=== PATIENT | male | born 1975 | race Caucasian/White ===

== ENCOUNTER 2022-12-28 04:09 | Emergency (ER) | payer MEDICARE, MEDICAID ==
[~2022-12-28] VITALS: Ht 177.8 cm; Wt 79.0 kg
[2022-12-28 04:12] VITALS: BP 111/69; PULSE 70; RESP 12; TEMP 99.1; O2SAT 99
[2022-12-28 07:00] LABS: BASOPHILS % 0.9 % (0.0-2.0); EOSINOPHILS % 8.7 % (0.0-5.0); HEMATOCRIT. 38.6 % (42.0-52.0); HEMOGLOBIN. 13.2 g/dL (14.0-18.0); LYMPHOCYTES % 27.3 % (20.0-50.0); MEAN CORPUSCULAR HEMOGLOBIN 31.8 pg (28.0-32.0); MEAN CORPUSCULAR HGB CONC 34.1 g/dL (31.0-37.0); MEAN CORPUSCULAR VOLUME 93.2 fL (80.0-94.0); MEAN PLATELET VOLUME 8.2 fl (7.4-10.4); MONOCYTES % 14.9 % (2.0-8.0); NEUTROPHILS % 48.2 % (40.0-76.0); PLATELET 220 x1000/uL (130-400); RED BLOOD CELL COUNT 4.14 mill/uL (4.7-6.1); RED CELL DISTRIBUTION WIDTH 13.8 % (11.6-14.6); WHITE BLOOD COUNT 6.2 x1000/uL (4.5-11.0)
[2022-12-28 07:15] LABS: INDEX HEMOLYSI 1 (1-3); INDEX ICTERIC 1 (1-4); INDEX LIPEMIC 1 (1-3)
[2022-12-28 08:30] LABS: ALANINE AMINOTRANSFERASE 23 IU/L (13-61); ALBUMIN 3.7 g/dL (3.4-5.0); ASPARTATE AMINOTRANSFERASE 18 IU/L (15-37); CALCIUM 8.4 mg/dL (8.5-10.1); CHLORIDE 110 mEq/L (98-107); CREATININE 0.8 mg/dL (0.6-1.3); GLUCOSE 88 mg/dL (70-105); POTASSIUM 4.5 mEq/L (3.5-5.1); PROTEIN TOTAL 6.8 g/dL (6.0-8.3); SODIUM 141 mEq/L (136-145); UREA NITROGEN BLOOD 30 mg/dL (7-21)
[2022-12-28 11:55] LABS: CARBON DIOXIDE 23 mEq/L (21-32)
== END 2022-12-28 07:56 | disposition left against medical advice (07) ==
LOC: ER 04:09
DX: R11.10 Vomiting, unspecified (principal)
CPT/HCPCS: 36415; 80053; 85025; 99283

== ENCOUNTER 2022-12-28 19:02 | Emergency (ER) | payer MEDICARE, MEDICAID ==
[~2022-12-28] VITALS: Ht 182.9 cm; Wt 77.0 kg
[2022-12-28 19:04] VITALS: BP 119/71; PULSE 78; RESP 16; TEMP 97; O2SAT 98
[2022-12-28 19:42] LABS: BASOPHILS % 0.7 % (0.0-2.0); EOSINOPHILS % 9.1 % (0.0-5.0); HEMATOCRIT. 40.4 % (42.0-52.0); HEMOGLOBIN. 13.6 g/dL (14.0-18.0); LYMPHOCYTES % 26.4 % (20.0-50.0); MEAN CORPUSCULAR HEMOGLOBIN 31.7 pg (28.0-32.0); MEAN CORPUSCULAR HGB CONC 33.8 g/dL (31.0-37.0); MEAN CORPUSCULAR VOLUME 93.8 fL (80.0-94.0); MEAN PLATELET VOLUME 8.5 fl (7.4-10.4); MONOCYTES % 10.1 % (2.0-8.0); NEUTROPHILS % 53.7 % (40.0-76.0); PLATELET 227 x1000/uL (130-400); RED CELL DISTRIBUTION WIDTH 13.8 % (11.6-14.6); WHITE BLOOD COUNT 7.6 x1000/uL (4.5-11.0)
[2022-12-28 19:50] LABS: CHLORIDE 110 mEq/L (98-107); INDEX HEMOLYSI 2 (1-3); INDEX ICTERIC 1 (1-4); INDEX LIPEMIC 2 (1-3); POTASSIUM 3.6 mEq/L (3.5-5.1); SODIUM 142 mEq/L (136-145)
[2022-12-28 19:58] LABS: ALANINE AMINOTRANSFERASE 25 IU/L (13-61); ALBUMIN 3.8 g/dL (3.4-5.0); ASPARTATE AMINOTRANSFERASE 20 IU/L (15-37); BILIRUBIN TOTAL 0.3 mg/dL (0.1-1.0); CALCIUM 8.4 mg/dL (8.5-10.1); CARBON DIOXIDE 26 mEq/L (21-32); CREATININE 0.8 mg/dL (0.6-1.3); GLUCOSE 134 mg/dL (70-105); PROTEIN TOTAL 6.8 g/dL (6.0-8.3); UREA NITROGEN BLOOD 23 mg/dL (7-21)
[2022-12-28] MEDS ORDERED: KETOROLAC 30MG/ML VIAL IM ONE (21:45)
== END 2022-12-29 00:07 | disposition left against medical advice (07) ==
LOC: ER 19:02
DX: R10.32 Left lower quadrant pain (principal); R74.8 Abnormal levels of other serum enzymes; F31.9 Bipolar disorder, unspecified
CPT/HCPCS: 36415; 80053; 85025; 93005; 99284

== ENCOUNTER 2023-11-13 22:00 | Emergency (ER) | payer MEDICARE, MEDICAID ==
[~2023-11-13] VITALS: Ht 175.3 cm; Wt 80.0 kg
[2023-11-13 22:07] VITALS: TEMP 97.7; O2SAT 98
[2023-11-13] MEDS: ACETAMINOPHEN 325MG TABLET PO ONE (22:15)
[2023-11-14] MEDS ORDERED: LIDO700A15 TP (00:42)
[2023-11-14] MEDS ORDERED: NAPR-1176 MT (00:42)
[2023-11-14] MEDS: ACETAMINOPHEN 325MG TABLET PO NR (01:22)
[2023-11-14 06:30] VITALS: BP 113/76; PULSE 54; RESP 18; O2SAT 99
== END 2023-11-14 02:00 | disposition home or self-care (01) ==
LOC: ER 22:00
DX: M25.561 Pain in right knee (principal); R51.9 Headache, unspecified; F31.9 Bipolar disorder, unspecified; W10.9XXA Fall (on) (from) unspecified stairs and steps, initial encounter; Y93.89 Activity, other specified; Y92.89 Other specified places as the place of occurrence of the external cause; Y99.8 Other external cause status
CPT/HCPCS: 73562; 99284

== ENCOUNTER 2024-11-08 01:37 | Emergency (ER) | payer MEDICARE, MEDICAID ==
[~2024-11-08] VITALS: Ht 170.2 cm; Wt 75.0 kg
[~2024-11-08 01:37] MED LIST: LIDO-53 TP; NAPR-1176 MT
[2024-11-08 01:38] VITALS: O2SAT 99
[2024-11-08] MEDS ORDERED: IBUP-1455 MT (01:43)
[2024-11-08] MEDS: IBUPROFEN 600MG TABLET PO ONE (01:53)
[2024-11-08 01:55] VITALS: BP 118/81; PULSE 93; RESP 15; TEMP 36.8; O2SAT 98
== END 2024-11-08 01:58 | disposition home or self-care (01) ==
LOC: ER 01:37
DX: M79.671 Pain in right foot (principal); F31.9 Bipolar disorder, unspecified; Z79.1 Long term (current) use of non-steroidal anti-inflammatories (NSAID)
CPT/HCPCS: 99283